=== PATIENT | male | born 1950 | race Caucasian/White ===

== ENCOUNTER 2023-08-16 23:30 | Emergency (ER) | payer SELFPAY ==
[~2023-08-16] VITALS: Ht 180.3 cm; Wt 73.0 kg
[2023-08-16 23:35] VITALS: BP 132/82; PULSE 86; RESP 18; TEMP 97; O2SAT 98
== END 2023-08-17 02:00 | disposition left against medical advice (07) ==
LOC: ER 23:30
DX: R68.89 Other general symptoms and signs (principal); Z53.21 Procedure and treatment not carried out due to patient leaving prior to being seen by health care provider
CPT/HCPCS: 99281